=== PATIENT | male | born 1950 | race Caucasian/White ===

== ENCOUNTER → 2020-01-14 | Outpatient (CLI) | payer MEDICARE ==
[2020-01-14 16:18] LABS: BASO # 0.1 x10^3/uL (0.0-0.2); BASO % 1 % (0-3); EOS # 0.3 x10^3/uL (0.0-0.7); EOS % 4 % (0-3); HEMOGLOBIN 15.7 g/dL (13.0-17.5); LYMPH % 23 % (24-48); MEAN CORPUSCULAR HEMOGLOBIN 31 pg (25-35); MEAN CORPUSCULAR HGB CONC 34 g/dL (31-37); MEAN CORPUSCULAR VOLUME 92 fL (79-100); MONO # 0.8 x10^3/uL (0.0-1.1); MONO % 9 % (0-9); NEUT # 5.6 x10^3uL (1.8-7.7); NEUT % 64 % (31-73); PLATELET COUNT 226 x10^3/uL (140-400); RED CELL DISTRIBUTION WIDTH 14.9 % (11.5-14.5); WHITE BLOOD COUNT 8.8 x10^3/uL (4.0-11.0)
[2020-01-14 16:23] LABS: ALBUMIN 3.8 g/dL (3.4-5.0); CALCIUM 9.9 mg/dL (8.5-10.1); CREATININE 1.2 mg/dL (0.7-1.3); GFR 60.2; POTASSIUM 4.4 mmol/L (3.5-5.1); TOTAL BILIRUBIN 0.4 mg/dL (0.2-1.0); TOTAL PROTEIN 7.5 g/dL (6.4-8.2)
--- NOTE | 2020-01-14 16:25 | RAD ---
INDICATION: Shortness of air COMPARISON: September 2014 FINDINGS: 2 views of chest obtained. Redemonstration of right lung nodule. Cardiac silhouette is unremarkable except calcific atherosclerosis. Degenerative changes of the spine. No definite new region of consolidation IMPRESSION: * Similar appearance when compared to prior without a definite new region of focal airspace consolidation. Electronically signed by: Segundo Jason MD (01/14/2020 4:22 PM) [id number]
[2020-01-14 16:35] LABS: BILIRUBIN,URINE NEG (NEG); CLARITY,URINE HAZY; COLOR,URINE YELLOW; GLUCOSE,URINE >=1000 mg/dL (NEG); NITRITE,URINE POS (NEG); UROBILINOGEN,URINE 0.2 mg/dL (0.2 mg/dL)
[2020-01-14 16:37] LABS: BACTERIA,URINE 0 /HPF (0-FEW)
[2020-01-15 01:06] LABS: TESTOSTERONE TOTAL 99 ng/dL (264-916)
[2020-01-15 12:51] LABS: HDLC 38 mg/dL (40-60); TRIGLYCERIDES 519 mg/dL (0-150)
[2020-01-15 12:52] LABS: FREE T4 1.04 ng/dL (0.76-1.46); THYROID STIM HORMONE (TSH) 10.969 uIU/mL (0.358-3.740)
[2020-01-17 14:07] LABS: FREE PSA/PSA RATIO 17.1 % (.); PSA FREE 0.12 ng/mL; PSA TOTAL 0.7 ng/mL (0.0-4.0)
[2020-01-18 11:15] LABS: VLDLC 104 mg/dL (0-40)
== END | disposition home or self-care (01) ==
LOC: CT 15:44
PROVIDERS: ATTEND Family Medicine
DX: R91.1 Solitary pulmonary nodule (principal); I70.0 Atherosclerosis of aorta; M47.814 Spondylosis without myelopathy or radiculopathy, thoracic region; I10 Essential (primary) hypertension; E11.65 Type 2 diabetes mellitus with hyperglycemia; R35.1 Nocturia; E78.1 Pure hyperglyceridemia; R94.5 Abnormal results of liver function studies; R00.8 Other abnormalities of heart beat; R06.02 Shortness of breath
CPT/HCPCS: 36415; 71046; 80053; 80061; 81001; 84153; 84154; 84403; 84439; 84443; 85025; 87086

== ENCOUNTER → 2021-12-15 | Outpatient (CLI) | payer MEDICARE ==
[~2021-12-15] VITALS: Ht 182.9 cm; Wt 103.9 kg
[~2021-12-15] MED LIST: VANCOMYCIN 2 GM in IV NORMAL SALINE 500ML 500 ML IV ONE; VANCOMYCIN PER PHARMACY MC PRN
[2021-12-15 16:00] VITALS: BP 130/81
== END ==
LOC: OPINF 15:05
PROVIDERS: ATTEND Family Medicine
DX: E11.69 Type 2 diabetes mellitus with other specified complication (principal); M86.8X7 Other osteomyelitis, ankle and foot; I10 Essential (primary) hypertension; E78.1 Pure hyperglyceridemia
CPT/HCPCS: 96365; 96366; J3370; J7040